=== PATIENT | female | born 1960 | race Caucasian/White ===

== ENCOUNTER 2021-11-14 00:25 | Emergency (ER) | payer BC, OTHER ==
[~2021-11-14] VITALS: Ht 167.6 cm; Wt 97.7 kg
[~2021-11-14 00:25] MED LIST: CYCL-1 PO
[2021-11-14] MEDS ORDERED: normal saline 1000ml 1,000 ML IV ONE (02:00)
[2021-11-14 02:20] LABS: BASOPHILS # (AUTO) 0.1 X10'3 (0-0.2); BASOPHILS % (AUTO) 0.8 % (0-1); EOSINOPHILS # (AUTO) 0.2 X10'3 (0-0.9); EOSINOPHILS % (AUTO) 1.6 % (0-6); HEMATOCRIT 45.6 % (35.0-45.0); HEMOGLOBIN 15.8 g/dl (12.0-16.0); LYMPHOCYTES # (AUTO) 2.4 X10'3 (1.1-4.8); LYMPHOCYTES % (AUTO) 24.3 % (21-51); MEAN CORPUSCULAR HGB CONC 34.6 g/dL (33.0-36.5); MEAN CORPUSCULAR VOLUME 86.9 FL (78-98); MEAN PLATELET VOLUME 6.8 FL (7.4-10.4); MONOCYTES # (AUTO) 0.5 X10'3 (0-0.9); NEUTROPHILS # (AUTO) 6.6 X10'3 (1.8-7.7); NEUTROPHILS % (AUTO) 68.3 % (42-75); PLATELET COUNT 285 X10'3 (140-440); RED BLOOD COUNT 5.25 X10'6 (4.20-5.60); RED CELL DISTRIBUTION WIDTH 12.6 % (11.5-14.5); WHITE BLOOD COUNT 9.7 X10'3 (4.5-11.0)
[2021-11-14 02:36] LABS: ALANINE AMINOTRANSFERASE 20 U/L (12-78); ALBUMIN 4.2 G/DL (3.4-5.0); ALBUMIN/GLOBULIN RATIO 1.1 (1.1-1.5); ALKALINE PHOSPHATASE 71 IU/L (46-116); ANION GAP 10 (8-16); ASPARTATE AMINO TRANSFERASE 16 U/L (10-37); BILIRUBIN,TOTAL 0.4 MG/DL (0.1-1.0); BLOOD UREA NITROGEN 17 MG/DL (7-18); BUN/CREATININE RATIO 20.2 (6.6-38.0); CALCIUM 9.8 MG/DL (8.5-10.1); CHLORIDE 105 MMOL/L (99-107); CREATININE 0.84 MG/DL (0.40-0.90); GLUCOSE 110 MG/DL (70-104); POTASSIUM 4.2 MMOL/L (3.5-5.1); SODIUM 142 MMOL/L (135-145); TOTAL PROTEIN 8.2 G/DL (6.4-8.2); eGFR 69 ML/MIN
[2021-11-14] MEDS ORDERED: glucagon, human recombinant 1mg kit IV ONE (02:55)
[2021-11-14] MEDS ORDERED: ondansetron/PF 4mg/2ml inj IV ONE (02:55)
[2021-11-14] MEDS ORDERED: famotidine/PF 10 mg/ml inj IV ONE (03:20)
[2021-11-14] MEDS ORDERED: pantoprazole 40MG/NS 100ML BAG 100 ML IV ONE (03:20)
[2021-11-14 03:42] VITALS: BP 131/86
[2021-11-14] MEDS ORDERED: PANT-47 PO (03:55)
== END 2021-11-14 04:18 | disposition home or self-care (01) ==
LOC: ER 00:25
DX: T18.108A Unspecified foreign body in esophagus causing other injury, initial encounter (principal); Z90.49 Acquired absence of other specified parts of digestive tract; X58.XXXA Exposure to other specified factors, initial encounter; Y93.89 Activity, other specified; Y92.89 Other specified places as the place of occurrence of the external cause; Y99.8 Other external cause status
CPT/HCPCS: 36415; 80053; 85025; 96361; 96374; 96375; 99284; C9113; J1610; J2405; J3490; J7030

== ENCOUNTER 2022-04-22 19:33 | Emergency (ER) | payer BC ==
[~2022-04-22] VITALS: Ht 167.6 cm; Wt 102.0 kg
[~2022-04-22 19:33] MED LIST changes: +PANT-47 PO
[2022-04-22] MEDS ORDERED: glucagon, human recombinant 1mg kit IM ONE (20:15)
[2022-04-22] MEDS ORDERED: ondansetron 4mg rapidly disintigrating tab PO ONE (20:15)
[2022-04-22 23:20] VITALS: BP 122/82
== END 2022-04-22 23:21 | disposition home or self-care (01) ==
LOC: ER 19:33
DX: K22.2 Esophageal obstruction (principal)
CPT/HCPCS: 96372; 99283; J1610

== ENCOUNTER → 2022-06-20 | Emergency (ER) | payer BC ==
[~2022-06-20] VITALS: Ht 167.6 cm; Wt 103.2 kg
[~2022-06-20] MED LIST changes: +famotidine 20mg tablet PO ONE; +mag hydrox/Alum hydrox/simeth 30ml oral suspension PO ONE
[2022-06-20 19:09] VITALS: BP 130/95
--- NOTE | 2022-06-21 01:43 | NUR ---
Patient states that she feels as if the foreign body in her esophagus has passed through. She is drinking water with no difficulty. Denies N/V, pain. notified.
== END | disposition home or self-care (01) ==
LOC: ER 18:55
DX: T18.198A Other foreign object in esophagus causing other injury, initial encounter (principal); X58.XXXA Exposure to other specified factors, initial encounter; Y93.89 Activity, other specified; Y92.89 Other specified places as the place of occurrence of the external cause; Y99.8 Other external cause status
CPT/HCPCS: 99283